=== PATIENT | female | born 1995 | race Caucasian/White ===

== ENCOUNTER 2022-01-05 13:54 | Emergency (ER) | payer MEDICAID ==
[~2022-01-05] VITALS: Ht 157.5 cm; Wt 48.2 kg
[2022-01-05 13:57] VITALS: BP 133/87
[2022-01-05 14:24] LABS: CLARITY,URINE CLEAR (Clear); COLOR,URINE YELLOW (Yellow); GLUCOSE, URINE NEGATIVE (Neg); KETONES,URINE 15 mg/dl (Neg); LEUKOCYTE ESTERASE ,URINE NEGATIVE (Neg); NITRITES, URINE NEGATIVE (Neg); OCCULT BLOOD,URINE NEGATIVE (Neg); PROTEIN,URINE NEGATIVE (Neg)
[2022-01-05 14:26] LABS: URINE HCG NEGATIVE (NEG)
[2022-01-05 14:27] LABS: UA COLLECTION TYPE CLN CATCH MIDSTREAM
== END 2022-01-05 17:38 | disposition home or self-care (01) ==
LOC: ER 13:56
DX: F41.9 Anxiety disorder, unspecified (principal); F12.10 Cannabis abuse, uncomplicated; Z88.0 Allergy status to penicillin
CPT/HCPCS: 71045; 81003; 81025; 99284